=== PATIENT | male | born 1960 | race African-American/Black ===

== ENCOUNTER 2017-08-27 08:48 | Emergency (ER) | payer OTHER ==
[2017-08-27 09:02] VITALS: BP 133/79; PULSE 79; RESP 18; TEMP 99.1
--- NOTE | 2017-08-27 09:21 | ED ---
General Adult HPI - General Chief complaint: Headache Stated complaint: FACIAL SWELLING Time Seen by Provider: 08/27/17 09:05 Source: patient, RN notes reviewed Mode of arrival: ambulatory Limitations: no limitations - History of Present Illness Initial comments: 56-year-old male presents to the emergency department with a chief complaint of left-sided facial swelling. Patient states he's been swollen for the past 2 days. He went to the dentist yesterday they thought maybe it was a sinus infection and that he should go to the ER. He states that he did not feel like he saw a dentist and he did not feels if he had good care. He states he comes in today because he still having facial swelling has improved since yesterday. He states that he has not had any fevers. He is able to open and close mouth. There is no radiation to the neck. Patient states he was concerned because of the continued swelling and the dental pain that he's been experiencing so he thought that he should be seen. Patient states is not currently having any other symptoms at this time. Patient denies any recent fever, chills, shortness of breath, chest pain, back pain, abdominal pain, nausea vomiting, numbness or tingling, dysuria or hematuria, constipation or diarrhea, headaches or visual changes, or any other current symptoms. - Related Data Home Medications Medication Instructions Recorded Confirmed Ibuprofen [Motrin] 800 mg PO TID 04/24/15 02/21/16 Atorvastatin [Lipitor] 20 mg PO DAILY 02/21/16 02/21/16 Beclomethasone Dipropionate [Qvar 2 puff INHALATION DIRECTED PRN 02/21/16 80 mcg] Multivitamins, Thera [Multivitamin] 1 tab PO DAILY 02/21/16 02/21/16 Ranitidine HCl [Zantac] 150 mg PO BID 02/21/16 02/21/16 Sertraline HCl [Zoloft] 25 mg PO DAILY 02/21/16 02/21/16 Previous Rx's Medication Instructions Recorded Clindamycin [Cleocin] 450 mg PO Q8HR #90 capsule 08/27/17 traMADol HCl [Ultram] 50 mg PO Q6H PRN #20 tab 08/27/17 Allergies Allergy/AdvReac Type Severity Reaction Status Date / Time contrast/ivp dye Allergy Itching Uncoded 08/27/17 09:02 Review of Systems ROS Statement: Those systems with pertinent positive or pertinent negative responses have been documented in the HPI. ROS Other: All systems not noted in ROS Statement are negative. Past Medical History Past Medical History: Asthma, GERD/Reflux, Hyperlipidemia, Myocardial Infarction (DC), Osteoarthritis (OA) Additional Past Medical History / Comment(s): varicose veins, hx fx tan hips from injury, chronic back pain Last Myocardial Infarction Date:: unknown History of Any Multi-Drug Resistant Organisms: None Reported Past Surgical History: Joint Replacement, Orthopedic Surgery Additional Past Surgical History / Comment(s): hip replacement(fx hip) tan, ORIF left ankle, right great toe Past Anesthesia/Blood Transfusion Reactions: Motion Sickness Past Psychological History: Depression Smoking Status: Never smoker Past Alcohol Use History: None Reported Past Drug Use History: None Reported - Past Family History Mother Family Medical History: Unable to Obtain Additional Family Medical History / Comment(s): adopted General Exam Limitations: no limitations General appearance: alert, in no apparent distress Head exam: Present: other (Patient is swelling along the left upper cheek and along the left upper jaw line) Eye exam: Present: normal appearance, PERRL, EOMI. Absent: scleral icterus, conjunctival injection, periorbital swelling ENT exam: Present: mucous membranes moist, other (Patient appears to be dental Maria T to tooth #11. No visible abscess noted.) Neck exam: Present: normal inspection. Absent: tenderness, meningismus, lymphadenopathy Respiratory exam: Present: normal lung sounds bilaterally. Absent: respiratory distress, wheezes, rales, rhonchi, stridor Cardiovascular Exam: Present: regular rate, normal rhythm, normal heart sounds. Absent: systolic murmur, diastolic murmur, rubs, gallop, clicks Back exam: Present: normal inspection Neurological exam: Present: alert, oriented X3 Psychiatric exam: Present: normal affect, normal mood Skin exam: Present: warm, dry, intact, normal color. Absent: rash Course Vital Signs 08/27/17 08:58 Temperature 99.1 F Pulse Rate 79 Respiratory 18 Rate Blood Pressure 133/79 O2 Sat by Pulse 99 Oximetry Medical Decision Making - Medical Decision Making 56 shows male presents with what appears to be dental. With associated infection. This time no abscess is visualized that can be drained. At this time we discussed that we will state patient on antibiotics and pain medication. We discussed continued follow-up with his dentist. We discussed return parameters and all questions. The patient family stated that they are in agreement with this plan. All questions have been answered. At this time the patient will be discharged home. Disposition Clinical Impression: Infected dental carries Disposition: HOME SELF-CARE Condition: Stable Instructions: Toothache (ED) Additional Instructions: Please use medication as discussed. Please follow up with family doctor if symptoms have not improved over the next two days. Please return to the emergency room if your symptoms increase or worsen or for any other concerns. Prescriptions: Clindamycin [Cleocin] 450 mg PO Q8HR #90 capsule traMADol HCl [Ultram] 50 mg PO Q6H PRN #20 tab PRN Reason: Pain Referrals: Tootie Aaron MD [Primary Care Provider] - 1-2 days Time of Disposition: 09:19
== END 2017-08-27 09:34 | disposition home or self-care (01) ==
LOC: EC 08:48
DX: K02.9 Dental caries, unspecified (principal); K21.9 Gastro-esophageal reflux disease without esophagitis; E78.5 Hyperlipidemia, unspecified; F32.9 Major depressive disorder, single episode, unspecified; M19.90 Unspecified osteoarthritis, unspecified site; Z96.643 Presence of artificial hip joint, bilateral; Z79.1 Long term (current) use of non-steroidal anti-inflammatories (NSAID); Z79.899 Other long term (current) drug therapy; Z91.041 Radiographic dye allergy status
CPT/HCPCS: 99283

== ENCOUNTER → 2017-10-31 | Outpatient (CLI) | payer OTHER ==
--- NOTE | 2017-11-01 08:18 | XR ---
EXAMINATION TYPE: XR Hip Complete LT DATE OF EXAM: 10/31/2017 CLINICAL HISTORY: Left hip pain increasing in severity. TECHNIQUE: AP and frogleg views of the left hip are obtained. COMPARISON: Left hip x-ray February 16, 2012. FINDINGS: There is no acute fracture/dislocation evident in the left hip. Metallic hardware through healed fracture left proximal femur is redemonstrated with broken femoral neck fixating screw redemon strated. There is further progression of degenerative change at left hip joint with advanced joint sp nichole loss, there is [id number] formation with subchondral cystic change. Spherical femoral head shap e is lost. IMPRESSION: There is further progression with advanced degenerative changes at left hip joint now id entified.
--- NOTE | 2017-11-01 08:20 | XR ---
EXAMINATION TYPE: XR lumbar spine 2 or 3V DATE OF EXAM: 10/31/2017 CLINICAL HISTORY: Intervertebral disc degeneration per order. Back pain. TECHNIQUE: Frontal and lateral images of the lumbar spine are obtained. COMPARISON: Lumbar spine x-ray October 01, 2015 FINDINGS: There are 5 lumbar type vertebral bodies identified. The lumbar spine redemonstrated sati sfactory alignment without evidence of acute fracture or dislocation. Vertebral body heights are with in normal limits. There is mild multilevel disc space narrowing. There is moderate to severe multile marysol anterior and lateral spurring. The overlying soft tissue appears unremarkable. No significant edda nge from prior study. IMPRESSION: As above.
== END | disposition home or self-care (01) ==
LOC: RADXRMAIN 10:52
PROVIDERS: ATTEND Family Medicine
DX: M48.061 Spinal stenosis, lumbar region without neurogenic claudication (principal); M16.12 Unilateral primary osteoarthritis, left hip
CPT/HCPCS: 72100; 73502

== ENCOUNTER → 2018-02-07 | Outpatient (CLI) | payer OTHER ==
--- NOTE | 2018-02-07 13:06 | XR ---
EXAMINATION TYPE: XR lumbar spine 2 or 3V DATE OF EXAM: 02/07/2018 CLINICAL HISTORY: Chronic low back pain TECHNIQUE: Frontal and lateral images of the lumbar spine are obtained. COMPARISON: 10/22/2017 FINDINGS: There are 5 lumbar type vertebral bodies identified. There is no interval growth progressi on of degenerative disc disease in comparison to the prior 10/22/2018. There are multilevel nearly [place] d[place] anterior osteophytes, intervertebral disc space loss, facet arthropathy, and endplate sclerosis . Findings are most pronounced at L5-S1. The lumbar spine shows satisfactory alignment without eviden ce of acute fracture or dislocation. Vertebral body heights and disk space heights are within normal limits. The overlying soft tissue appears unremarkable. IMPRESSION: No acute fracture or malalignment is seen in the lumbar spine. Moderate multilevel degen erative disc disease most exaggerated within the lower lumbosacral spine. MRI could be performed for further evaluation of resultant neural foraminal narrowing or spinal canal stenosis.
== END | disposition home or self-care (01) ==
LOC: RADXRMAIN 10:49
PROVIDERS: ATTEND Family Medicine
DX: M51.36 Other intervertebral disc degeneration, lumbar region (principal)
CPT/HCPCS: 72100

== ENCOUNTER 2018-07-19 08:49 | Emergency (ER) | payer OTHER ==
[2018-07-19 08:53] VITALS: BP 142/88; PULSE 86; RESP 18; TEMP 98.1
--- NOTE | 2018-07-19 09:20 | ED ---
General Adult HPI - General Chief complaint: Dental/Oral Stated complaint: dental pain Source: patient Mode of arrival: ambulatory Limitations: no limitations - Related Data Home Medications Medication Instructions Recorded Confirmed Ibuprofen [Motrin] 800 mg PO TID 04/24/15 02/21/16 Atorvastatin [Lipitor] 20 mg PO DAILY 02/21/16 02/21/16 Beclomethasone Dipropionate [Qvar 2 puff INHALATION DIRECTED PRN 02/21/16 80 mcg] Multivitamins, Thera [Multivitamin] 1 tab PO DAILY 02/21/16 02/21/16 Ranitidine HCl [Zantac] 150 mg PO BID 02/21/16 02/21/16 Sertraline HCl [Zoloft] 25 mg PO DAILY 02/21/16 02/21/16 Previous Rx's Medication Instructions Recorded Clindamycin [Cleocin] 450 mg PO Q8HR #90 capsule 08/27/17 traMADol HCl [Ultram] 50 mg PO Q6H PRN #20 tab 08/27/17 Penicillin V Potassium [Pen Vee K] 500 mg PO QID 8 Days #32 tablet 07/19/18 Allergies Allergy/AdvReac Type Severity Reaction Status Date / Time Iodinated Contrast- Oral and AdvReac Itching Verified 07/19/18 09:04 IV Dye Review of Systems ROS Statement: Those systems with pertinent positive or pertinent negative responses have been documented in the HPI. ROS Other: All systems not noted in ROS Statement are negative. Past Medical History Past Medical History: Asthma, GERD/Reflux, Hyperlipidemia, Myocardial Infarction (OR), Osteoarthritis (OA) Additional Past Medical History / Comment(s): varicose veins, hx fx tan hips from injury, chronic back pain Last Myocardial Infarction Date:: unknown History of Any Multi-Drug Resistant Organisms: None Reported Past Surgical History: Joint Replacement, Orthopedic Surgery Additional Past Surgical History / Comment(s): hip replacement(fx hip) tan, ORIF left ankle, right great toe Past Anesthesia/Blood Transfusion Reactions: Motion Sickness Past Psychological History: Depression Smoking Status: Never smoker Past Alcohol Use History: None Reported Past Drug Use History: None Reported - Past Family History Mother Family Medical History: Unable to Obtain Additional Family Medical History / Comment(s): adopted General Exam Limitations: no limitations Course Vital Signs 07/19/18 08:51 Temperature 98.1 F Pulse Rate 86 Respiratory 18 Rate Blood Pressure 142/88 O2 Sat by Pulse 98 Oximetry Medical Decision Making - Medical Decision Making Dictation was produced using [employer] dictation software. please excuse any grammatical, word or spelling errors. Chief Complaint: 57 male presents with dental pain. History of Present Illness: This is a 57-year-old male presents with dental pain. Patient states she's been having are not dental pain for approximately one month. He states that is left mandibular first premolar is feeling little loose and painful. Patient has poor dentition. Patient has not follow-up with dentist. Patient has no other complaints The ROS documented in this emergency department record has been reviewed and confirmed by me. Those systems with pertinent positive or negative responses have been documented in the HPI. All other systems are other negative and/or noncontributory. PHYSICAL EXAM: General Impression: Alert and oriented x3, not in acute distress HEENT: Normocephalic atraumatic, extra-ocular movements intact, pupils equal and reactive to light bilaterally, mucous membranes moist. Oral exam: No gingival abnormalities. Mild tenderness to palpation of the affected tooth Cardiovascular: Heart regular rate and rhythm, S1&S2 audible, no murmurs, rubs or gallops Chest: Lungs clear to auscultation bilaterally, no rhonchi, no wheeze, no rales Abdomen: Bowel sounds present, abdomen soft, non-tender, non-distended, no organomegaly Musculoskeletal: Pulses present and equal in all extremities, no peripheral edema Motor: Power 5/5 bilaterally, no focal deficits noted Neurological: CN II-XII grossly intact, no focal motor or sensory deficits noted Skin: Intact with no visualized rashes Psych: Normal affect and mood ED course: 57ear-old male presents with chief complaint of dental pain. Vital signs upon arrival are within acceptable limits. No gingival abscesses noted at this time. Patient given antibiotics. Told to follow up with dentist. He states he will go to the office today to make an appointment. Patient was told to follow-up with primary care physician. Disposition Clinical Impression: Pain, dental Disposition: HOME SELF-CARE Condition: Good Instructions: Toothache (ED) Prescriptions: Penicillin V Potassium [Pen Vee K] 500 mg PO QID 8 Days #32 tablet Is patient prescribed a controlled substance at d/c from ED?: No Referrals: Tootie Aaron MD [Primary Care Provider] - 1-2 days Time of Disposition: 09:20
== END 2018-07-19 09:42 | disposition home or self-care (01) ==
LOC: EC 08:49
DX: K08.89 Other specified disorders of teeth and supporting structures (principal); J45.909 Unspecified asthma, uncomplicated; E78.5 Hyperlipidemia, unspecified; K21.9 Gastro-esophageal reflux disease without esophagitis; M19.90 Unspecified osteoarthritis, unspecified site; F32.9 Major depressive disorder, single episode, unspecified; I25.2 Old myocardial infarction; Z91.041 Radiographic dye allergy status; Z79.1 Long term (current) use of non-steroidal anti-inflammatories (NSAID); Z79.899 Other long term (current) drug therapy; Z96.643 Presence of artificial hip joint, bilateral
CPT/HCPCS: 99282

== ENCOUNTER 2018-10-29 15:46 | Emergency (ER) | payer OTHER ==
[2018-10-29 15:56] VITALS: BP 136/88; PULSE 102; RESP 16; TEMP 98.6
--- NOTE | 2018-10-29 16:13 | ED ---
Fall HPI - General Chief Complaint: Fall Stated Complaint: Fall Time Seen by Provider: 10/29/18 16:00 Source: patient Mode of arrival: wheelchair - History of Present Illness Initial Comments: This is a 58-year-old male who states he tripped on a sidewalk and fell prior to admission today he states he landed on his outstretched left hand his hand initially function to his left ribs. He complains some left anterior lateral rib pain hurts with movement and deep breathing he also complains of left hand pain no head neck or back pain or other injuries reported. MD Complaint: fall - Related Data Home Medications Medication Instructions Recorded Confirmed Ranitidine HCl [Zantac] 150 mg PO BID 02/21/16 02/21/16 Sertraline HCl [Zoloft] 25 mg PO DAILY 02/21/16 02/21/16 Atorvastatin Calcium [Lipitor] 10 mg PO HS 10/29/18 10/29/18 Meloxicam [Mobic] 7.5 mg PO BID 10/29/18 10/29/18 Previous Rx's Medication Instructions Recorded Ibuprofen 800 mg PO Q6HR PRN #20 tablet 10/29/18 Allergies Allergy/AdvReac Type Severity Reaction Status Date / Time Iodinated Contrast- Oral and AdvReac Itching Verified 10/29/18 16:38 IV Dye Review of Systems ROS Statement: Those systems with pertinent positive or pertinent negative responses have been documented in the HPI. ROS Other: All systems not noted in ROS Statement are negative. Past Medical History Past Medical History: Asthma, GERD/Reflux, Hyperlipidemia, Myocardial Infarction (ND), Osteoarthritis (OA) Additional Past Medical History / Comment(s): varicose veins, hx fx tan hips from injury, chronic back pain Last Myocardial Infarction Date:: unknown History of Any Multi-Drug Resistant Organisms: None Reported Past Surgical History: Joint Replacement, Orthopedic Surgery Additional Past Surgical History / Comment(s): hip replacement(fx hip) tan, ORIF left ankle, right great toe Past Anesthesia/Blood Transfusion Reactions: Motion Sickness Past Psychological History: Depression Smoking Status: Never smoker Past Alcohol Use History: None Reported Past Drug Use History: None Reported - Past Family History Mother Family Medical History: Unable to Obtain Additional Family Medical History / Comment(s): adopted General Exam - General Exam Comments Initial Comments: This is a well-developed well-nourished awake alert oriented times 3 male he does demonstrate a [place] Coma Scale of 15 Limitations: no limitations General appearance: alert Head exam: Present: atraumatic, normocephalic, normal inspection Eye exam: Present: normal appearance, PERRL, EOMI. Absent: scleral icterus, conjunctival injection, periorbital swelling ENT exam: Present: normal exam, mucous membranes moist Neck exam: Present: normal inspection, full ROM, other (No stridor JVD or bruits). Absent: tenderness, meningismus, lymphadenopathy Respiratory exam: Present: normal lung sounds bilaterally, chest wall tenderness (Tenderness palpation of the anterior lateral left chest wall no step-off or crepitation no open wounds no abrasions seen tenderness palpation however.). Absent: respiratory distress, wheezes, rales, rhonchi, stridor Cardiovascular Exam: Present: regular rate, normal rhythm, normal heart sounds. Absent: systolic murmur, diastolic murmur, rubs, gallop, clicks GI/Abdominal exam: Present: soft, normal bowel sounds. Absent: distended, tenderness, guarding, rebound, rigid, bruit, pulsatile mass Extremities exam: Present: full ROM, normal capillary refill, other (Evidence of edema over the medial aspect of the left hand and dorsal aspect no obvious open wounds there is tenderness palpation. Distally no sensorimotor or vascular deficits no pain or deformity noted proximal to this. No left elbow shoulder clavicle pain to palpation.). Absent: tenderness, pedal edema, joint swelling, calf tenderness Back exam: Present: normal inspection Neurological exam: Present: alert, oriented X3, CN II-XII intact Psychiatric exam: Present: normal affect, normal mood Skin exam: Present: warm, dry, intact, normal color. Absent: rash Course Vital Signs 10/29/18 15:53 Temperature 98.6 F Pulse Rate 102 H Respiratory 16 Rate Blood Pressure 136/88 O2 Sat by Pulse 99 Oximetry Procedures - Orthopedic Splinting/Casting Injury #1 Upper Extremity Injury Location: short arm, wrist (Volar short arm OCL splint 5 x 30 for limited half.) Medical Decision Making - Radiology Data Radiology results: report reviewed (I did review the imaging and report there is evidence of radial styloid fracture nondisplaced.), image reviewed Disposition Clinical Impression: Fall, Rib contusion, Distal radius fracture, left Disposition: HOME SELF-CARE Condition: Good Instructions (If sedation given, give patient instructions): Rib Contusion (ED), Wrist Fracture in Adults (ED) Prescriptions: Ibuprofen 800 mg PO Q6HR PRN #20 tablet PRN Reason: Pain Is patient prescribed a controlled substance at d/c from ED?: No Referrals: Tootie Aaron MD [Primary Care Provider] - 1-2 days Matthew Cazares DO [Doctor of Osteopathic Medicine] - 1-2 days
--- NOTE | 2018-10-29 17:05 | XR ---
EXAMINATION TYPE: XR hand complete LT DATE OF EXAM: 10/29/2018 COMPARISON: NONE HISTORY: Pain after falling TECHNIQUE: 3 mm FINDINGS: Metacarpals are intact. There is a 5 mm nondisplaced chip fracture of the tip of the radial styloid process. There is no dislocation. There is some mild arthritis at the second MP joint. The c arpal bones appear intact. IMPRESSION: Nondisplaced radial styloid process Chip fracture.
--- NOTE | 2018-10-29 17:07 | XR ---
EXAMINATION TYPE: XR ribs LT w pa chest xray DATE OF EXAM: 10/29/2018 COMPARISON: 02/14/2013 HISTORY: Pain TECHNIQUE: 6 views FINDINGS: Heart and mediastinum are normal. Lungs are clear of infiltrate. There is no pleural effusi on or pneumothorax. There is moderate arthritic change in the left shoulder joint. I see no rib fract ure. IMPRESSION: No active cardiopulmonary disease. No rib fracture seen. Heart and lungs unchanged.
[2018-10-29] MEDS ORDERED: IBUPROFEN 800 MG TAB PO STA (17:20)
== END 2018-10-29 17:59 | disposition home or self-care (01) ==
LOC: EC 15:46
DX: S52.502A Unspecified fracture of the lower end of left radius, initial encounter for closed fracture (principal); S20.212A Contusion of left front wall of thorax, initial encounter; E78.5 Hyperlipidemia, unspecified; K21.9 Gastro-esophageal reflux disease without esophagitis; I25.2 Old myocardial infarction; M19.90 Unspecified osteoarthritis, unspecified site; F32.9 Major depressive disorder, single episode, unspecified; Z91.041 Radiographic dye allergy status; Z79.1 Long term (current) use of non-steroidal anti-inflammatories (NSAID); Z79.899 Other long term (current) drug therapy; Z96.643 Presence of artificial hip joint, bilateral; Z96.698 Presence of other orthopedic joint implants; W01.0XXA Fall on same level from slipping, tripping and stumbling without subsequent striking against object, initial encounter; Y93.01 Activity, walking, marching and hiking; Y92.480 Sidewalk as the place of occurrence of the external cause
CPT/HCPCS: 29125; 99283

== ENCOUNTER → 2019-04-28 | Outpatient (CLI) | payer OTHER ==
--- NOTE | 2019-04-28 12:44 | XR ---
EXAMINATION TYPE: XR wrist complete LT DATE OF EXAM: 04/28/2019 CLINICAL HISTORY: pain TECHNIQUE: Frontal, lateral and oblique images of the left wrist are obtained. COMPARISON: 10/29/2018 FINDINGS: There is no acute fracture/dislocation evident. Partial nonunion radial styloid fracture r egion. The joint spaces appear within normal limits. The overlying soft tissue appears unremarkable . IMPRESSION: There is no acute fracture or dislocation seen.
== END | disposition home or self-care (01) ==
LOC: RADXRMAIN 11:16
PROVIDERS: ATTEND Family Medicine
DX: M25.532 Pain in left wrist (principal)

== ENCOUNTER 2019-05-02 12:26 | Emergency (ER) | payer OTHER ==
--- NOTE | 2019-05-02 13:27 | XR ---
EXAMINATION TYPE: XR ribs LT w pa chest xray DATE OF EXAM: 05/02/2019 CLINICAL HISTORY: Fall with subsequent chest and left rib pain TECHNIQUE: Single frontal view of the chest is obtained. 2 views of the left ribs were also obtained. COMPARISON: 10/29/2018 FINDINGS: There is no focal air space opacity, pleural effusion, or pneumothorax seen. 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 Platelike left basilar atelectasis is present. The cardiac silho uette size is within normal limits. There are acute nondisplaced, noncomminuted fractures of the ante rior lateral margins of ribs 8, 9, 10, and 11. Chronic prominence of the ascending aorta and aortic a rch. IMPRESSION: Acute nondisplaced, noncomminuted fractures of the anterolateral margins of ribs 8 throug h 11 on the left and left basilar subsegmental atelectasis.
--- NOTE | 2019-05-02 13:52 | ED ---
Fall HPI - General Chief Complaint: Fall Stated Complaint: FALL LEFT RIB PAIN Time Seen by Provider: 05/02/19 12:43 Source: patient Mode of arrival: ambulatory - History of Present Illness Initial Comments: Patient is a 58-year-old male presenting to emergency Department with complaints of left-sided rib pain after he fell 3 days ago. Patient states he tripped over a cord and his house and fell forward with his left hand landing underneath his left ribs. Patient states ever since the fall he has been having left-sided rib pain. Patient thought he had just bruised the ribs that site did not come in earlier. He has pain with sitting, laying down, and just overall uncomfortable. Patient states he does have pain medication from his doctor for his chronic low back pain that is helping with the pain. Patient denies trouble breathing, shortness of breath, chest pain. Patient denies any other injuries from this fall. Denies hitting his head, LOC. Patient does have a brace on his left wrist that he says is chronic in nature and not secondary to this fall. Patient has no other complaints at this time. Upon arrival to ER, vital signs are stable. - Related Data Home Medications Medication Instructions Recorded Confirmed Ranitidine HCl [Zantac] 150 mg PO BID 02/21/16 05/02/19 Sertraline HCl [Zoloft] 25 mg PO HS 02/21/16 05/02/19 Atorvastatin Calcium [Lipitor] 10 mg PO HS 10/29/18 05/02/19 Etodolac 500 mg PO BID 05/02/19 05/02/19 Allergies Allergy/AdvReac Type Severity Reaction Status Date / Time Iodinated Contrast Media AdvReac Itching Verified 05/02/19 14:28 [Iodinated Contrast- Oral and IV Dye] Review of Systems ROS Statement: Those systems with pertinent positive or pertinent negative responses have been documented in the HPI. ROS Other: All systems not noted in ROS Statement are negative. Past Medical History Past Medical History: Asthma, GERD/Reflux, Hearing Disorder / Deafness, Hyperlipidemia, Myocardial Infarction (MD), Osteoarthritis (OA) Additional Past Medical History / Comment(s): Rt ear deaf. Varicose Veins, hx fx horace hips from injury, chronic back pain. Began PO AB Rx 01/19/19 for tooth infection. Last Myocardial Infarction Date:: unknown History of Any Multi-Drug Resistant Organisms: None Reported Past Surgical History: Joint Replacement, Orthopedic Surgery Additional Past Surgical History / Comment(s): ORIF HORACE Hips (fx hip) horace, ORIF left ankle, right great toe Past Anesthesia/Blood Transfusion Reactions: No Reported Reaction Additional Past Anesthesia/Blood Transfusion Reaction / Comment(s): Claustrophobia Past Psychological History: Depression Smoking Status: Former smoker Past Alcohol Use History: None Reported Past Drug Use History: Marijuana - Past Family History Mother Family Medical History: Unable to Obtain Additional Family Medical History / Comment(s): adopted General Exam - General Exam Comments Initial Comments: GENERAL: Well-appearing, well-nourished and in no acute distress. HEAD: Atraumatic, normocephalic. EYES: Pupils equal round and reactive to light, extraocular movements intact, sclera anicteric, conjunctiva are normal. ENT: Nares patent, oropharynx clear without exudates. Moist mucous membranes. NECK: Normal range of motion, supple without lymphadenopathy or JVD. LUNGS: Breath sounds clear to auscultation bilaterally and equal. No wheezes rales or rhonchi. Pain with palpation of the anterior and lateral left ribs. HEART: Regular rate and rhythm without murmurs, rubs or gallops. ABDOMEN: Soft, nontender, normoactive bowel sounds. No guarding, no rebound. No masses appreciated. EXTREMITIES: Normal range of motion, no pitting or edema. No clubbing or cyanosis. NEUROLOGICAL: Cranial nerves II through XII grossly intact. Normal speech. PSYCH: Normal mood, normal affect. SKIN: Warm, Dry, normal turgor, no rashes or lesions noted. Limitations: no limitations Course Vital Signs 05/02/19 05/02/19 12:35 14:10 Temperature 98.5 F 98.3 F Pulse Rate 96 78 Respiratory 18 17 Rate Blood Pressure 127/91 122/74 O2 Sat by Pulse 100 97 Oximetry Medical Decision Making - Medical Decision Making Patient is a 58-year-old male with complaints of left-sided rib pain after falling 3 days ago. Patient has no other complaints from the fall. Vital signs are stable. X-ray reveals acute nondisplaced, non-comminuted fractures of the anterior lateral margins of ribs 8 through 11 on the left. There is no pleural effusion or pneumothorax seen. Patient states his pain is being controlled with his current pain medication. Patient will will be given a spirometer to use 10 times each hour while awake. Patient is stable for discharge at this time. Patient will follow up with his PCP as needed. Patient is in agreement with this plan of care. Return parameters were discussed with the patient he verbalizes understanding. Case discussed with Dr. Cunningham. Disposition Clinical Impression: Fall, Multiple fractures of ribs, left side, initial encounter for closed fracture Disposition: HOME SELF-CARE Condition: Stable Instructions (If sedation given, give patient instructions): Rib Fracture (ED) Additional Instructions: Please return to the Emergency Department if symptoms worsen or any other concerns. Use incentive spirometer a few times every hour. Follow-up with PCP as needed. Is patient prescribed a controlled substance at d/c from ED?: No Referrals: Tootie Aaron MD [Primary Care Provider] - 1-2 days
[2019-05-02 14:31] VITALS: BP 122/74; PULSE 78; RESP 17; TEMP 98.3
== END 2019-05-02 14:11 | disposition home or self-care (01) ==
LOC: EC 12:26
DX: S22.42XA Multiple fractures of ribs, left side, initial encounter for closed fracture (principal); G89.29 Other chronic pain; M54.5 Low back pain; K21.9 Gastro-esophageal reflux disease without esophagitis; H91.91 Unspecified hearing loss, right ear; E78.5 Hyperlipidemia, unspecified; I25.2 Old myocardial infarction; M19.90 Unspecified osteoarthritis, unspecified site; F32.9 Major depressive disorder, single episode, unspecified; Z87.891 Personal history of nicotine dependence; Z91.041 Radiographic dye allergy status; Z79.1 Long term (current) use of non-steroidal anti-inflammatories (NSAID); Z79.899 Other long term (current) drug therapy; W01.0XXA Fall on same level from slipping, tripping and stumbling without subsequent striking against object, initial encounter; Y92.009 Unspecified place in unspecified non-institutional (private) residence as the place of occurrence of the external cause
CPT/HCPCS: 99283

== ENCOUNTER → 2022-01-07 | Outpatient (CLI) | payer OTHER ==
--- NOTE | 2022-01-07 08:56 | CT ---
EXAMINATION TYPE: CT abdomen pelvis w con CT DLP: 1777.00 mGycm, Automated exposure control for dose reduction was used. DATE OF EXAM: 01/07/2022 8:47 AM COMPARISON: None. CLINICAL INDICATION:Male, 61 years old with history of Abnormal weight loss R63.4; Unexplained weight loss TECHNIQUE: Standard CT of the abdomen and pelvis following the administration of 100 cc of Isovue 3 00 IV contrast material and oral contrast. Coronal and sagittal reformats were performed. FINDINGS: LOWER CHEST: Unremarkable ABDOMEN LIVER: Unremarkable GALLBLADDER AND BILE DUCTS: Unremarkable. PANCREAS: Unremarkable. SPLEEN: Unremarkable. ADRENAL GLANDS: Unremarkable. KIDNEYS AND URETERS: No evidence of hydronephrosis or renal calculus. The ureters are unremarkable. Left renal cysts and too small to characterize probable renal cysts. PELVIS BLADDER: Unremarkable REPRODUCTIVE: Unremarkable. ABDOMEN & PELVIS STOMACH AND BOWEL: Scattered clonic diverticula present. No evidence of bowel obstruction. PERITONEUM: No evidence of pneumoperitoneum or free fluid. VASCULATURE: No evidence of aortic aneurysm. Scattered atherosclerosis of the arterial vasculature. MUSCULOSKELETAL: No acute osseous abnormalities. Bilateral fixation hardware which appears to have a broken left screw in the left hip prosthesis. The right hip fixation hardware is intact.. Multilevel disc degeneration changes are seen throughout the spine. There is end-stage degeneration changes of t he left hip with subchondral cysts, sclerosis and osteophyte formation. LYMPH NODES: No gross evidence for lymphadenopathy. SOFT TISSUE/ABDOMINAL WALL: Unremarkable IMPRESSION: 1. No evidence of acute process or evidence for intra-abdominal mass. 2. Scattered clonic diverticula. 3. Fixation hardware in the proximal femurs with broken femoral head screw on the left, similar dati ng back to at least 2018.
== END | disposition home or self-care (01) ==
LOC: RADCTMAIN 08:07
PROVIDERS: ATTEND Family Medicine
DX: K57.30 Diverticulosis of large intestine without perforation or abscess without bleeding (principal)
CPT/HCPCS: 74177; Q9967